=== PATIENT | female | born 1990 | race Caucasian/White ===

== ENCOUNTER 2018-10-28 11:13 | Day surgery (SDC) | payer OTHER ==
[2018-10-28 11:46] VITALS: BMI 22.9
[2018-10-28] MEDS ORDERED: Butorphanol Tartrate 1 MG/ML VIAL IM SCH ×2 (12:30→16:00)
[2018-10-28] MEDS ORDERED: Promethazine HCl 25 MG/ML VIAL IM SCH (12:30)
[2018-10-28] MEDS ORDERED: Butorphanol Tartrate 1 MG/ML VIAL ONE (15:33)
--- NOTE | 2018-10-28 16:28 | PRG ---
DATE OF SERVICE: 10/28/2018 PRIMARY OB: Dr. Will Segovia. CHIEF COMPLAINT: Uterine contractions. HISTORY OF PRESENT ILLNESS: The patient is a 28-year-old, G1, P0 female with an intrauterine at 39 weeks' gestation, who is here for complaints of uterine contractions that began yesterday. She reports that they have been coming about every 5 minutes now. The patient denies leakage of fluid or vaginal bleeding. The patient denies headache, chest pain, shortness of breath, nausea, vomiting, diarrhea, or constipation. She denies any bleeding, leaking of fluid, or urinary urgency. PAST MEDICAL HISTORY: The patient has history of chronic hypertension, off medication and anxiety. PAST SURGICAL HISTORY: Head surgery in 1996. ALLERGIES: NO KNOWN DRUG ALLERGIES. MEDICATIONS: 1. Fluoxetine 10 mg daily. 2. vitamins. SOCIAL HISTORY: Denies drug, alcohol, or tobacco use. OB LABORATORY DATA: Blood type is A positive. Antibody screen is negative. VDRL is nonreactive. Hepatitis B surface antigen is nonreactive. HIV is nonreactive. GC and chlamydia negative. She is rubella immune. One-hour diabetes screen is 95. Third trimester VDRL is negative. GBS is negative. REVIEW OF SYSTEMS: Per HPI. PHYSICAL EXAMINATION: VITAL SIGNS: Blood pressure is 120/72, heart rate of 67, temperature 98.2, and saturating 100% on room air. GENERAL: She appears to be in no acute distress. She is alert, oriented, cooperative, and pleasant to interact with. HEAD: Normocephalic and atraumatic. LUNGS: Clear to auscultation bilaterally. HEART: Has regular rate and rhythm. ABDOMEN: Gravid. EXTREMITIES: Nontender and nonedematous. : Exam over 3-1/2 hours is changed from 2, 90, -1 station to 3, 90, -1 station. Her contractions have spaced. heart tracing performed. Baseline is noted to be in the 130s with moderate long-term variability, positive accelerations, no decelerations noted. The tocometer showing some irritability with contractions every 7 to 10 minutes. ASSESSMENT AND PLAN: The patient is a 28-year-old female, G1, P0 with an intrauterine at 39 weeks and 6 days, who is here for evaluation of labor. There is no evidence of active labor at this time. The patient has been given the option of me contacting her primary physician to see her thoughts about keeping her here for augmentation of labor. The patient has expressed desire to progress on her own naturally and is comfortable going home. The patient during her stay was given 2 mg of Stadol initially and prior to discharge, we will be given another milligram of Stadol. The fetus has a reactive NST and category 1 tracing. She has been given term labor precautions. Job ID: [id number]
== END 2018-10-28 15:45 | disposition home health service (06) ==
LOC: L&D/OP 11:13
PROVIDERS: ATTEND Obstetrics & Gynecology
DX: O47.1 False labor at or after 37 completed weeks of gestation (principal); O10.913 Unspecified pre-existing hypertension complicating pregnancy, third trimester; O99.343 Other mental disorders complicating pregnancy, third trimester; F41.9 Anxiety disorder, unspecified; Z3A.39 39 weeks gestation of pregnancy; Z79.899 Other long term (current) drug therapy; Z98.890 Other specified postprocedural states
CPT/HCPCS: J0595; J2550

== ENCOUNTER 2018-10-28 23:07 | Inpatient (IN) | payer OTHER ==
[~2018-10-28 23:07] MED LIST: Bupivacaine HCl 0.25%/Epi 0.0005/PF 10 ML VIAL FS ONE; ePHEDrine/0.9% NaCl/PF SYRINGE 50 mg/10 ml ONE
[2018-10-28] MEDS ORDERED: Lactated Ringer's 1,000 ML IV SCH (23:45)
[2018-10-28 23:54] VITALS: BMI 20.7
[2018-10-28] MEDS ORDERED: Ibuprofen 800 MG TAB PO PRN (23:59)
[2018-10-28] MEDS ORDERED: Butorphanol Tartrate 1 MG/ML VIAL SLOW IVP PRN (23:59)
[2018-10-28] MEDS ORDERED: Ondansetron PF 4 MG/2 ML Vial IVP PRN (23:59)
[2018-10-28] MEDS ORDERED: HYDROcodone/Acetaminophen 5/325 mg Tablet PO PRN ×2 (23:59)
[2018-10-28] MEDS ORDERED: NS / Oxytocin 40 units/1000ml 1,000 ML IV PRN (23:59)
[2018-10-28] MEDS ORDERED: Lidocaine 1% (PF) 30 ML VIAL SC PRN (23:59)
[2018-10-29] MEDS ORDERED: Fentanyl 4 mcg/Bup 0.1% Cadd 100 ML ONE (00:08)
[2018-10-29] MEDS ORDERED: Lidocaine 1.5% w/Epi 1:200K 30 ML VIAL (Epid Use) ONE (00:15)
[2018-10-29 00:26] LABS: Hemoglobin 13.3 g/dL (12.0-16.0); Mean Corpuscular HGB CONC 34.7 g/dL (32.0-36.0); Mean Corpuscular Hemoglobin 33.7 pg (27.0-31.0); Platelet Count 254 thou/uL (130-400); RBC Distribution Width 10.8 % (11.5-14.5); Red Blood Cell (RBC) Count 3.94 mill/uL (4.20-5.40); White Blood Cell (WBC) Count 14.4 thou/uL (4.8-10.8)
[2018-10-29] MEDS: Lactated Ringer's 1,000 ML IV SCH ×2 (00:55→06:40)
[2018-10-29 00:57] LABS: Syphilis Antibody Nonreactive (Nonreactive); Syphilis Antibody Index 0.06 S/CO (<1.00 Non-Reactive)
[2018-10-29 00:58] LABS: HBSAg Index 0.24 S/CO (0-0.99); Hep B Surf Ag Non-Reactive S/CO (NonReactive)
[2018-10-29] MEDS ORDERED: Promethazine HCl 25 MG/ML VIAL IM PRN (01:12)
[2018-10-29] MEDS ORDERED: Ondansetron PF 4 MG/2 ML Vial IVP PRN ×2 (01:12→11:44)
[2018-10-29] MEDS ORDERED: ePHEDrine/0.9% NaCl/PF SYRINGE 50 mg/10 ml SLOW IVP PRN (01:12)
[2018-10-29] MEDS ORDERED: Acetaminophen 325 MG TAB PO PRN (01:12)
[2018-10-29] MEDS ORDERED: Hydrocerin (Eucerin) Cream 120 gm Jar TOP PRN (01:12)
[2018-10-29] MEDS ORDERED: diphenhydrAMINE 50 MG/ML VIAL IVP PRN (01:12)
[2018-10-29] MEDS ORDERED: Naloxone HCl 0.4 mg/ml Vial IVP PRN ×2 (01:12)
[2018-10-29] MEDS ORDERED: Lactated Ringer's 500 ML IV PRN (01:12)
[2018-10-29] MEDS ORDERED: Fentanyl 4 mcg/Bupivacaine 0.1% Cassette 100 ML EPIDURAL SCH (01:15)
[2018-10-29] MEDS ORDERED: Communication Order-Pharmacy FS SCH (01:15)
[2018-10-29] MEDS ORDERED: Methylergonovine 0.2 MG/ML VIAL ONE (08:22)
[2018-10-29] MEDS ORDERED: Misoprostol 200 MCG TAB ONE (08:22)
--- NOTE | 2018-10-29 08:34 | PDOC.OPDEL ---
OB Operative/Delivery Note Delivery Dr/Surgeon: Luca Pre-Delivery Diagnosis: active labor Procedure/Post Delivery Dx: spontaneous vaginal delivery Weeks gestation: 40 Anesthesia: epidural (and local to perineum) - Findings A Sex: female Weight: 6 lb 15 oz - 1 min: 8 - 5 min: 9 - Additional Findings/Plan Placenta delivered: spontaneous Repaired Obstetrical Laceration: right labial Estimated blood loss: EBL 400ml QBLpending Compilations/Other Findings: immediate PPH/uterine atony. Relieved w massage, pitocin and methergine x 1 Post delivery plan: routine recovery
[2018-10-29] MEDS ORDERED: Adacel (T-DAP) 0.5 ML SYRINGE IM ONE (11:44)
[2018-10-29] MEDS ORDERED: Lanolin Ointment 7 GM TUBE TOP PRN (11:44)
[2018-10-29] MEDS ORDERED: Benzocaine/Menthol 20-0.5% 60 ML CAN TOP PRN (11:44)
[2018-10-29] MEDS ORDERED: Milk Of Magnesia 30 ML UDCUP PO PRN (11:44)
[2018-10-29] MEDS ORDERED: diphenhydrAMINE 25 MG CAP PO PRN (11:44)
[2018-10-29] MEDS ORDERED: NS / Oxytocin 40 units/1000ml 1,000 ML IV SCH (11:44)
[2018-10-29] MEDS ORDERED: Bisacodyl 10 MG SUPP PR PRN (11:44)
[2018-10-29] MEDS ORDERED: Prenatal Vitamin 1 TAB PO SCH ×2 (11:44→12:15)
[2018-10-29] MEDS ORDERED: Docusate Calcium (SURFAK) 240 MG CAP PO SCH ×2 (11:44→12:15)
[2018-10-29] MEDS ORDERED: Preparation H Ointment 28 GM TUBE PR PRN (11:44)
[2018-10-29] MEDS ORDERED: HYDROcodone/Acetaminophen 5/325 mg Tablet PO PRN ×2 (11:44)
[2018-10-29] MEDS: Ibuprofen 800 MG TAB PO SCH ×2 (12:46→21:26)
[2018-10-29] MEDS: Ferrous Sulfate 325 MG TAB PO SCH (18:23)
[2018-10-29] MEDS: Docusate Calcium (SURFAK) 240 MG CAP PO SCH (21:26)
[2018-10-30] MEDS: Ibuprofen 800 MG TAB PO SCH ×2 (05:29→14:03)
[2018-10-30 06:46] LABS: Mean Corpuscular HGB CONC 33.2 g/dL (32.0-36.0); Mean Corpuscular Hemoglobin 33.1 pg (27.0-31.0); Mean Corpuscular Volume 99.6 fL (78.0-98.0); Mean Platelet Volume 8.9 fL (7.4-10.4); Platelet Count 176 thou/uL (130-400); RBC Distribution Width 10.9 % (11.5-14.5); Red Blood Cell (RBC) Count 3.01 mill/uL (4.20-5.40); White Blood Cell (WBC) Count 10.9 thou/uL (4.8-10.8)
[2018-10-30] MEDS: Ferrous Sulfate 325 MG TAB PO SCH (08:16)
[2018-10-30 08:18] VITALS: BP 109/65; TEMP 98
[2018-10-30] MEDS: Docusate Calcium (SURFAK) 240 MG CAP PO SCH (08:18)
[2018-10-30] MEDS ORDERED: Prenatal Vitamin 1 TAB PO SCH (09:00)
--- NOTE | 2018-10-30 09:30 | PDOC.PP ---
Post Progress Note Post Day #: 1 Subjective: doing well, min lochia, min discomfort, baby nursing well, would like to DC home today if baby able to DC PO intake tolerated: yes Flatus: yes Ambulation: yes Vital Signs (12 hours) Temp Pulse Resp BP Pulse Ox 10/30/18 08:17 98.0 F 69 20 109/65 100 10/30/18 04:00 98.2 F 71 18 127/79 10/29/18 22:50 97.9 F 56 L 16 121/71 Weight Weight 145 lb - Physical Examination General: NAD Respiratory: non-labored breathing Abdominal: no distention Fundus firm & at: below umb Skin: no rash Neurological: no gross focal deficits Psychiatric: A&Ox3, normal affect Result Diagrams: 10/30/18 05:30 Additional Labs: Post Labs Blood Type A POSITIVE 10/28/18 23:59 Hep Bs Antigen Non-Reactive S/CO (NonReactive) 10/28/18 23:59 (1) 40 weeks gestation of Code(s): Z3A.40 - 40 WEEKS GESTATION OF Status: Acute (2) Active labor at term Code(s): NIO2380 - Status: Acute (3) Vaginal delivery Code(s): O80 - ENCOUNTER FOR FULL-TERM UNCOMPLICATED DELIVERY Status: Acute - Assessment/Plan PPD1, doing very well. Hgb 10.0 this AM, min lochia. Request DC if baby DC.
== END 2018-10-30 15:20 | disposition home or self-care (01) | DRG 807 ==
LOC: L&D/OP 23:07 → L&D 23:51 → 3SW 10-29 11:27
PROVIDERS: ADMIT Obstetrics & Gynecology; ATTEND Obstetrics & Gynecology
PROC: 10E0XZZ Delivery of Products of Conception, External Approach (ICD-10-PCS; principal; 2018-10-29)
PROC: 0HQ9XZZ Repair Perineum Skin, External Approach (ICD-10-PCS; 2018-10-29)
DX: O99.824 Streptococcus B carrier state complicating childbirth (principal); Z37.0 Single live birth; O48.0 Post-term pregnancy; O16.4 Unspecified maternal hypertension, complicating childbirth; Z98.890 Other specified postprocedural states; Z3A.40 40 weeks gestation of pregnancy
CPT/HCPCS: 36415; 51702; 59025; 85027; 86780; 86850; 86900; 86901; 87340; 96372; 99284; 99285; J0595; J2001; J2210; J2405; J2550

== ENCOUNTER 2019-04-05 12:51 | Emergency (ER) | payer OTHER ==
[2019-04-05 15:16] LABS: HIV (1/2) Antibody/Antigen Non-Reactive (NonReactive); HIV 1/2 INDEX 0.16 S/CO (<1.00); Hep C IgG Ab Non-Reactive (NonReactive); Hep C Index 0.09 S/CO (0-0.79)
[2019-04-05 15:35] LABS: HBSAB Concentration 21.65 mIU/mL; Hep B Surf AB Reactive (NonReactive)
== END 2019-04-05 15:32 | disposition home or self-care (01) ==
LOC: ERS 12:51
DX: Z77.21 Contact with and (suspected) exposure to potentially hazardous body fluids (principal); F41.9 Anxiety disorder, unspecified
CPT/HCPCS: 86706; 86803; 87389; 99283